=== PATIENT | female | born 1960 | race Caucasian/White ===

== ENCOUNTER → 2017-02-13 | Outpatient (CLI) | payer OTHER ==
[2017-02-13 12:44] LABS: Basophils # (A) 0.1 k/uL (0-0.2); Basophils % (A) 1 %; CH 28.8; CHCM 33.4; Eosinophils # (A) 0.2 k/uL (0-0.7); Eosinophils % (A) 2 %; HCT 44.8 % (34.0-46.0); HGB 15.1 gm/dL (11.4-16.0); Luc # (Auto) 0.21; Luc % (Auto) 3; Lymphocytes # (A) 1.8 k/uL (1.0-4.8); Lymphocytes % (A) 22 %; MCH 29.1 pg (25.0-35.0); MCHC 33.6 g/dL (31.0-37.0); MCV 86.5 fL (80.0-100.0); Mean Platelet Volume 7.1; Monocytes # (A) 0.5 k/uL (0-1.0); Monocytes % (A) 6 %; Neutrophils # (A) 5.2 k/uL (1.3-7.7); Neutrophils % (A) 66 %; RBC 5.18 m/uL (3.80-5.40); WBC 7.9 k/uL (3.8-10.6); WBC (Perox) 8.34
[2017-02-13 12:58] LABS: ALT 51 U/L (9-52); AST 30 U/L (14-36); Alkaline Phosphatase 81 U/L (38-126); Anion Gap 13 mmol/L; Blood Urea Nitrogen 20 mg/dL (7-17); Calcium 10.2 mg/dL (8.4-10.2); Carbon Dioxide 24 mmol/L (22-30); Chloride 104 mmol/L (98-107); Cholesterol 174 mg/dL (<200); Glucose 148 mg/dL (74-99); HDL Cholesterol 28 mg/dL (40-60); Non-African American GFR(MDRD) >60 (>60 ml/min/1.73 sqM); Potassium 4.5 mmol/L (3.5-5.1); Sodium 141 mmol/L (137-145); Total Bilirubin 0.6 mg/dL (0.2-1.3); Total Protein 7.2 g/dL (6.3-8.2); Triglycerides 383 mg/dL (<150)
[2017-02-13 14:35] LABS: Hemoglobin A1C 7.7 % (4.2-6.1)
[2017-02-13 19:23] LABS: Urine Creatinine 90.2 mg/dL
== END | disposition home or self-care (01) ==
LOC: LABWHC1 11:37
PROVIDERS: ATTEND Family Medicine
DX: E11.65 Type 2 diabetes mellitus with hyperglycemia (principal)
CPT/HCPCS: 36415; 80053; 80061; 82043; 82570; 83036; 84443; 85025

== ENCOUNTER → 2017-03-03 | Outpatient (CLI) | payer OTHER ==
--- NOTE | 2017-03-03 11:07 | MM ---
Reason for exam: additional evaluation requested from prior study. Last mammogram was performed 1 year ago. History: Patient is postmenopausal, has history of breast cancer at age 54, and has history of high-risk lesion on a previous biopsy at age 54. Family history of breast cancer in maternal aunt at age 50. Radiation therapy, September 2015. Malignant MG pre op needle loc LT of the left breast, June 30, 2015. High risk MG stereo VAD BX LT of the left breast, June 23, 2015. US discontinued breast bx LT of the left breast, June 23, 2015. Took hormonal contraceptives for 2 years beginning at age 18. Took antineoplastic beginning at age 54. Physical Findings: Nurse did not find any significant physical abnormalities on exam. MG 3D Diag Mammo W/Cad MAX Bilateral CC and MLO view(s) were taken. Prior study comparison: March 01, 2016, bilateral MG 3d diag mammo w/cad MAX. June 02, 2015, bilateral MG 3d diag mammo w/cad MAX. There are scattered fibroglandular densities. Finding #1: Architectural distortion in the left breast consistent with previous surgery. Finding #2: There are grouped/clustered calcifications in the right breast. New finding since March 01, 2016 and June 02, 2015. These results were verbally communicated with the patient and result sheet given to the patient on 03/03/17. ASSESSMENT: Suspicious, BI-RAD 4 RECOMMENDATION: Stereotactic core biopsy of the right breast. Called Dr. Russell with mammographic findings and has scheduled an appointment for the patient for 03/08/17 at 8:[address] Sidhu. PRELIMINARY REPORT CALLED AND FAXED TO DR. SIDHU ON 03/03/17 /TP.
== END | disposition home or self-care (01) ==
LOC: RADMAMWWP 08:48
PROVIDERS: ATTEND Radiology Diagnostic Radiology
DX: C50.912 Malignant neoplasm of unspecified site of left female breast (principal)
CPT/HCPCS: G0204; G0279

== ENCOUNTER → 2017-03-14 | Day surgery (SDC) | payer OTHER ==
[2017-03-14 07:47] VITALS: RESP 16; BMI 29.2
--- NOTE | 2017-03-14 09:06 | MM ---
EXAMINATION TYPE: MG stereo VAD BX RT DATE OF EXAM: 03/14/2017 COMPARISON: Prior mammogram March 03, 2017 and older studies. CLINICAL HISTORY: Abnormal mammogram TECHNIQUE: Stereotactic guided core biopsy of right breast with clip placement and follow-up two-view mammogram. FINDINGS: The procedure of stereotactic guided core biopsy was explained to the patient. Benefits, alternatives, and risks were discussed. An informed consent was then obtained. [facility] Shortness pathway was inferior approach. I performed the localization, then surgeon, Dr. Yip performed the remainder of the procedure. A vacuum assisted biopsy gun was used to obtain multiple core samples. The patient tolerated the procedure well without any immediate complication. The patient was kept in the radiology department for short stay after the procedure and then discharged home in stable condition. 2 small faint targeted calcifications are identified in specimen mammogram. Post biopsy mammogram shows the clip to appear in satisfactory position relative to the targeted area of concern on the preprocedure images. No residual calcifications are identified. IMPRESSION: SUCCESSFUL, UNCOMPLICATED STEREOTACTIC GUIDED CORE BIOPSY OF AREA OF CONCERN IN THE RIGHT BREAST, FULL PATHOLOGY RESULTS TO FOLLOW. Low index of suspicion noted at time of procedure. Pathology Results: Benign BREAST, RIGHT SITE A, CORE BIOPSY: BENIGN BREAST WITH FIBROCYSTIC CHANGES AND FOCAL FAT NECROSIS. SEE NOTE. Recommendation Return to screening mammogram in 1 year. Back on schedule. FAVIAN
[2017-03-14 09:08] VITALS: BP 102/68; PULSE 70; TEMP 98.5
--- NOTE | 2017-03-14 11:30 | PCN ---
PREPROCEDURE DIAGNOSIS: Mammographic abnormality right breast, status post left breast lumpectomy for carcinoma. POSTPROCEDURE DIAGNOSIS: Mammographic abnormality right breast, status post left breast lumpectomy for carcinoma. PROCEDURE: Right breast stereotactic core biopsy. The patient is a 56-year-old white female who was seen with a mammographic abnormality in the right breast and recommended by Radiology to undergo a right breast stereotactic core biopsy. The patient had previously undergone a left breast lumpectomy for a breast cancer. Physical examination of the breast had revealed postlumpectomy changes in the left breast and in the right breast no dominant masses or nodules of concern and no axillary adenopathy of concern in either breast. The patient was taken to the stereotactic procedure room and the stereotactic right breast biopsy was performed. The location of the lesion was in the inferior aspect of the right breast. The approach used to target the lesion was an inferior approach and the CC view. The lesion was targeted and the skin was then prepped using a Betadine solution. 1% Lidocaine was used to anesthetize area. A suction vacuum biopsy needle on a low rad table was utilized. An 8-gauge needle was utilized. The multiple core biopsies were obtained. Radiograph of the specimen revealed several calcifications which was believed to be patient account representative in adequate sampling of the lesion. A MammoMARK 8 [id number] was placed. Radiographs of the breast revealed that the marker was in the correct location. The patient tolerated the procedure in stable condition. This specimen was sent for pathology and the patient will follow with Dr. Claros. FAVIAN
== END ==
LOC: RADMAMWWP 07:23
PROVIDERS: ATTEND Surgery
DX: N64.1 Fat necrosis of breast (principal); R92.8 Other abnormal and inconclusive findings on diagnostic imaging of breast; Z88.8 Allergy status to other drugs, medicaments and biological substances
CPT/HCPCS: 88305; 19081; A4648; J2001

== ENCOUNTER → 2017-10-09 | Outpatient (CLI) | payer OTHER ==
--- NOTE | 2017-10-09 14:56 | BD ---
EXAMINATION TYPE: MG DEXA axial skeleton. DATE OF EXAM: 10/09/2017 Comparison: Prior DEXA bone scan August 10, 2015 CLINICAL HISTORY: Height: 63.75 Weight: 173 FRAX RISK QUESTIONS: Alcohol (3 or more units per day): no Family History (Parent hip fracture): no Glucocorticoids (More than 3mos): no (Ex: prednisone, prednisolone, methylprednisolone, dexamethasone, and hydrocortisone). History of Fracture in Adulthood: no Secondary Osteoporosis: 1. Type 1 Diabetes: no 2. Hyperthyroidism: no 3. Menopause before 45: hysterectomy age 45 4. Malnutrition: no 5. Chronic liver disease: no Rheumatoid Arthritis: no Current Tobacco Use: yes RISK FACTORS HISTORY OF: Family History of Osteoporosis: no Active: yes Diet low in dairy products/other sources of calcium: no Postmenopausal woman: yes Take estrogen and/or progesterone medications: not now How long: antineoplastic for a couple years Lost more than 2 inches in height since high school: no Frequent falls: no Poor Health: unsure Hyperparathyroidism: no Adrenal Insufficiency: no MEDICATIONS: Prednisone or other steroids: no Thyroid Medications: no Osteoporosis Medications: no Additional Medications: metformin, blood pressure meds, cholesterol Additional History: Breast CA age 54/radiation 2016... Type II diabetic....feeling tired EXAM MEASUREMENTS: Bone mineral densitometry was performed using the [employer] System. Bone mineral density as measured about the Lumbar spine is: ----- L1-L4(G/cm2): 1.100 T Score Values are as follows: ----- L2: -0.6 ----- L3: -0.7 ----- L4: -1.2 ----- L1-L4: -0.7 Bone mineral density has: Decreased -4.9% since study of: 08/10/2015 Bone mineral density about the R hip (g/cm2): 1.057 Bone mineral density about the L hip (g/cm2): 1.038 T Score values are as follows: -----R Neck: 0.1 -----L Neck: 0.0 -----R Total: 0.5 -----L Total: 0.4 Bone mineral density has: Decreased -4.0% since study of: 08/10/2015 IMPRESSION: Normal (Values between +1 and -1 indicate normal bone mass). Consider repeating this study in 5 year s or sooner if there is some new clinical indication. NOTE: T-SCORE=SD OF THE YOUNG ADULT MEAN.
== END | disposition home or self-care (01) ==
LOC: RADBDWWP 13:13
PROVIDERS: ATTEND Internal Medicine Hematology & Oncology
DX: D05.12 Intraductal carcinoma in situ of left breast (principal); N95.1 Menopausal and female climacteric states; Z79.890 Hormone replacement therapy
CPT/HCPCS: 77080

== ENCOUNTER → 2018-01-12 | Outpatient (CLI) | payer OTHER ==
--- NOTE | 2018-01-12 15:30 | US ---
EXAMINATION TYPE: US thyroid st tissue head/neck DATE OF EXAM: 01/12/2018 COMPARISON: NONE CLINICAL HISTORY: F45.8 Other somatoform disorders. Patient states that when she bends over, she feel s a pressure sensation in her left neck. Within the left neck, there are two probable lymph nodes visualized, largest measuring 1.1 x 0.5 x 0. 5 cm. No other abnormality visualized within the left neck. IMPRESSION: In the region of the palpable abnormality there are multiple nonenlarged, morphologicall y normal-appearing lymph nodes.
== END | disposition home or self-care (01) ==
LOC: RADUSWWP 14:51
PROVIDERS: ATTEND Family Medicine
DX: R93.8 Abnormal findings on diagnostic imaging of other specified body structures (principal); F45.8 Other somatoform disorders
CPT/HCPCS: 76536

== ENCOUNTER → 2018-03-15 | Outpatient (CLI) | payer OTHER ==
--- NOTE | 2018-03-15 15:52 | MM ---
Reason for exam: additional evaluation requested from prior study. Last mammogram was performed 1 year ago. History: Patient is postmenopausal, has history of breast cancer at age 54, and has history of high-risk lesion on a previous biopsy at age 54. Family history of breast cancer in paternal cousin at age 40 and breast cancer in maternal aunt at age 50. Benign MG stereo VAD BX RT of the right breast, March 14, 2017. Radiation therapy, September 2015. Malignant MG pre op needle loc LT of the left breast, June 30, 2015. High risk MG stereo VAD BX LT of the left breast, June 23, 2015. US discontinued breast bx LT of the left breast, June 23, 2015. Took hormonal contraceptives for 2 years beginning at age 18. Took antineoplastic beginning at age 54. Physical Findings: Nurse did not find any significant physical abnormalities on exam. MG 3D Diag Mammo W/Cad MAX Bilateral CC and MLO view(s) were taken. Prior study comparison: March 03, 2017, bilateral MG 3d diag mammo w/cad MAX. March 01, 2016, bilateral MG 3d diag mammo w/cad MAX. The breast tissue is heterogeneously dense. This may lower the sensitivity of mammography. There is a distortion in the upper outer left breast consistent with previous lumpectomy changes. There are benign appearing round calcifications bilaterally. No discrete abnormality. These results were verbally communicated with the patient and result sheet given to the patient on 03/15/18. ASSESSMENT: Benign, BI-RAD 2 RECOMMENDATION: Follow-up diagnostic mammogram of both breasts in 1 year.
== END | disposition home or self-care (01) ==
LOC: RADMAMWWP 09:37
PROVIDERS: ATTEND Radiology Diagnostic Radiology
DX: C50.912 Malignant neoplasm of unspecified site of left female breast (principal)
CPT/HCPCS: 77066; G0279; 77062

== ENCOUNTER → 2018-10-16 | Outpatient (CLI) | payer OTHER ==
--- NOTE | 2018-10-16 11:02 | CT ---
EXAMINATION TYPE: CT soft tissue neck w con DATE OF EXAM: 10/16/2018 COMPARISON: None HISTORY: Mass and lump CT DLP: 364.70 mGycm CONTRAST: CT scan of the neck is performed with IV Contrast, patient injected with 100 ml mL of Isovue 300. Mar ker is placed at the site of clinical concern left neck. Contrast enhanced CT of the neck was performed from the skull base through the lung apices. At the site of clinical concern left neck there is prominent fat that which may reflect a lipoma. No solid masses are detected. AIRWAY: The supraglottic, glottic, and subglottic portions of the airway appear patent and free of mass. SALIVARY GLANDS: The submandibular and parotid glands are free of mass or inflammatory process. THYROID GLAND: No nodules or masses seen. LYMPH NODES: No adenopathy seen greater than 1cm. LUNG APICES: No nodule or mass is seen. OTHER: Vascular structures are patent. No significant degenerative change of the cervical spine. N o abscess seen. IMPRESSION: Exuberant fat or lipoma at the site of clinical concern left neck.
== END | disposition home or self-care (01) ==
LOC: RADCTMAIN 09:28
PROVIDERS: ATTEND Family Medicine
DX: C50.912 Malignant neoplasm of unspecified site of left female breast (principal); R22.1 Localized swelling, mass and lump, neck
CPT/HCPCS: 82565; 84520; 70491; 36415; Q9967

== ENCOUNTER → 2019-03-18 | Outpatient (CLI) | payer OTHER ==
--- NOTE | 2019-03-18 10:30 | MM ---
Reason for exam: additional evaluation requested from prior study. Last mammogram was performed 1 year ago. History: Patient is postmenopausal, has history of breast cancer at age 54, and has history of high-risk lesion on a previous biopsy at age 54. Family history of breast cancer in paternal cousin at age 40 and breast cancer in maternal aunt at age 50. Benign MG stereo VAD BX RT of the right breast, March 14, 2017. Radiation therapy, September 2015. Malignant MG pre op needle loc LT of the left breast, June 30, 2015. High risk MG stereo VAD BX LT of the left breast, June 23, 2015. US discontinued breast bx LT of the left breast, June 23, 2015. Took hormonal contraceptives for 2 years beginning at age 18. Took antineoplastic beginning at age 54. Physical Findings: Nurse did not find any significant physical abnormalities on exam. MG 3D Diag Mammo W/Cad MAX Bilateral CC and MLO view(s) were taken. Prior study comparison: March 15, 2018, bilateral MG 3d diag mammo w/cad MAX. March 03, 2017, bilateral MG 3d diag mammo w/cad MAX. The breast tissue is heterogeneously dense. This may lower the sensitivity of mammography. Stable benign calcifications. Stable post operative distortion left breast. No significant new findings when compared with previous films. These results were verbally communicated with the patient and result sheet given to the patient on 03/18/19. ASSESSMENT: Benign, BI-RAD 2 RECOMMENDATION: Follow-up diagnostic mammogram of both breasts in 1 year.
== END | disposition home or self-care (01) ==
LOC: RADMAMWWP 09:32
PROVIDERS: ATTEND Radiology Diagnostic Radiology
DX: Z08 Encounter for follow-up examination after completed treatment for malignant neoplasm (principal); Z85.3 Personal history of malignant neoplasm of breast
CPT/HCPCS: 77062; 77066

== ENCOUNTER 2020-03-27 06:36 | Day surgery (SDC) | payer OTHER ==
[2020-03-25 16:57] VITALS: BMI 31.8
[~2020-03-27 06:36] MED LIST: LACTATED RINGERS 1,000 ML IV SCH
[2020-03-27 06:58] VITALS: TEMP 97.8
[2020-03-27] MEDS ORDERED: LIDOCAINE 1% (10MG/ML) FOR IV START INTRADERMA ONE (07:00)
[2020-03-27] MEDS ORDERED: LACTATED RINGERS 1,000 ML IV ONE ×2 (07:00)
[2020-03-27 07:08] LABS: Glucose,Whole Blood 147 mg/dL (75-99)
[2020-03-27] MEDS ORDERED: PROPOFOL 10 MG/ML 20 ML VIAL IV ONE (07:53)
--- NOTE | 2020-03-27 08:21 | P.PCN ---
Date of Procedure: 03/27/20 Procedure(s) Performed: BRIEF HISTORY: Patient is a 59-year-old pleasant white female scheduled for an elective colonoscopy as a part of value should prior history of colon polyps. Last colonoscopy was 5 years ago. PROCEDURE PERFORMED: Colonoscopy with snare polypectomy. PREOPERATIVE DIAGNOSIS: History Of colon polyps. IV sedation per Anesthesia. PROCEDURE: After informed consent was obtained, the patient, was brought into the endoscopy unit. IV sedation was administered by Anesthesia under continuous monitoring. Digital rectal examination was normal. Initially the Olympus CF-160 flexible video colonoscope was then inserted in the rectum, gradually advanced into the cecum without any difficulty. Careful examination was performed as the scope was gradually being withdrawn. Ileocecal valve and the appendiceal orifice were visualized and appeared normal. Prep was excellent. Mucosa of the cecum appeared normal. In the ascending colon there was a 5 mm polyp that was removed by snare polypectomy. Rest of the, ascending colon, transverse colon, descending colon, sigmoid colon, and rectum appeared normal. Retroflexion was performed in the rectum and no lesions were seen. The patient tolerated the procedure well. IMPRESSION: 5 mm ascending colon polyp serous was snare polypectomy Rest of the colon appeared normal RECOMMENDATIONS: Findings of this examination were discussed with the patient as well as a family.. She was advised to follow with the biopsy results. If the biopsy shows an adenoma she can have a repeat colonoscopy in 5 years.
[2020-03-27 08:38] VITALS: BP 110/58; PULSE 67; RESP 18
== END 2020-03-27 08:59 | disposition home or self-care (01) ==
LOC: ORWHC2ENDO 06:36
PROVIDERS: ATTEND Internal Medicine Gastroenterology
DX: Z12.11 Encounter for screening for malignant neoplasm of colon (principal); K63.5 Polyp of colon; Z86.010 Personal history of colon polyps; E11.9 Type 2 diabetes mellitus without complications; K08.109 Complete loss of teeth, unspecified cause, unspecified class; I10 Essential (primary) hypertension; E78.5 Hyperlipidemia, unspecified; F17.210 Nicotine dependence, cigarettes, uncomplicated; K21.9 Gastro-esophageal reflux disease without esophagitis; Z88.1 Allergy status to other antibiotic agents; Z88.8 Allergy status to other drugs, medicaments and biological substances; Z88.6 Allergy status to analgesic agent; Z79.899 Other long term (current) drug therapy; Z79.84 Long term (current) use of oral hypoglycemic drugs; Z85.3 Personal history of malignant neoplasm of breast
CPT/HCPCS: 88305; 45385; J2704

== ENCOUNTER → 2021-03-26 | Outpatient (CLI) | payer OTHER ==
--- NOTE | 2021-03-26 11:54 | MM ---
Reason for exam: additional evaluation requested from prior study. Last mammogram was performed 2 years ago. History: Patient is postmenopausal, has history of breast cancer at age 54, and has history of high-risk lesion on a previous biopsy at age 54. Family history of breast cancer in paternal cousin at age 40 and breast cancer in maternal aunt at age 50. Benign MG stereo VAD BX RT of the right breast, March 14, 2017. Radiation therapy, September 2015. Malignant MG pre op needle loc LT of the left breast, June 30, 2015. High risk MG stereo VAD BX LT of the left breast, June 23, 2015. US discontinued breast bx LT of the left breast, June 23, 2015. Took hormonal contraceptives for 2 years beginning at age 18. Took antineoplastic beginning at age 54. Physical Findings: Nurse did not find any significant physical abnormalities on exam. MG 3D Diag Mammo W/Cad MAX Bilateral CC and MLO view(s) were taken. Prior study comparison: March 18, 2019, bilateral MG 3d diag mammo w/cad MAX. March 15, 2018, bilateral MG 3d diag mammo w/cad MAX. March 03, 2017, bilateral MG 3d diag mammo w/cad MAX. The breast tissue is heterogeneously dense. This may lower the sensitivity of mammography. Finding #1: There is stable architectural distortion in the left breast consistent with known post treatment changes. Finding #2: There are typically benign round calcifications in both breasts. There is a chronic nodularity in the left lateral breast unchanged from 2018. There is no new dominant lesion. These results were verbally communicated with the patient and result sheet given to the patient on 03/26/21. ASSESSMENT: Benign, BI-RAD 2 RECOMMENDATION: Follow-up diagnostic mammogram of both breasts in 1 year.
== END | disposition home or self-care (01) ==
LOC: RADMAMWWP 10:52
PROVIDERS: ATTEND Radiology Diagnostic Radiology
DX: R92.1 Mammographic calcification found on diagnostic imaging of breast (principal); Z78.0 Asymptomatic menopausal state; Z85.3 Personal history of malignant neoplasm of breast; Z80.3 Family history of malignant neoplasm of breast; Z79.3 Long term (current) use of hormonal contraceptives
CPT/HCPCS: 77066; G0279; 77062

== ENCOUNTER → 2024-02-16 | Outpatient (CLI) | payer BC ==
--- NOTE | 2024-02-23 13:15 | MM ---
Reason for Exam: Screening (asymptomatic). Last mammogram was performed 1 year(s) and 11 month(s) ago. Patient History: Menarche at age 14. First Full-Term at age 18. Left ovary removed at age 45. Right ovary removed at age 45. Hysterectomy at age 45. Postmenopausal. Breast cancer, age 54. Hormonal Contraceptives for 2 years from age 18 until age 20. 03/14/2017, Benign Core Biopsy on the right side. 06/30/2015, Malignant Core Biopsy on the left side. 06/23/2015, High risk Core Biopsy on the left side. 09/2015, Radiation Therapy. 06/23/2015, US discontinued breast bx LT on the left side. Paternal cousin had breast cancer, age 40. Maternal aunt had breast cancer, age 50. Prior Study Comparison: 03/18/2019 Bilateral Diagnostic Mammogram, [facility]. 03/26/2021 Bilateral Diagnostic Mammogram, [facility]. 03/28/2022 Bilateral MG 3D diag mammo w/cad MAX, [facility]. Tissue Density: The breasts are heterogeneously dense, which may obscure small masses. Findings: Analyzed By CAD. Left breast surgical clips. Right breast: There is no suspicious group of microcalcifications or new suspicious mass. Benign-appearing calcifications right breast. Left breast: There is no suspicious group of microcalcifications or new suspicious mass. Benign-appearing calcifications left breast. Overall Assessment: Benign, BI-RAD 2 Management: Screening Mammogram of both breasts in [address] [facility] will attempt to contact patient to return for supplemental views and ultrasound if indicated. Patient should continue monthly self-breast exams. A clinical breast exam by your physician is recommended on an annual basis. This exam should not preclude additional follow-up of suspicious palpable abnormalities. Note on Jaida scores and lifetime risk: 1. A Jaida score greater than 3% is considered moderate risk. If this is the case, consider specialist referral to assess eligibility for a risk reducing agent. 2. If overall lifetime risk for the development of breast cancer is 20% or higher, the patient may qualify for future screening with alternating mammogram and breast MRI. Electronically signed and approved by: Noble Valle DO
== END | disposition home or self-care (01) ==
LOC: RADMAMWWP 16:00
PROVIDERS: ATTEND Family Medicine
DX: Z12.31 Encounter for screening mammogram for malignant neoplasm of breast (principal); Z78.0 Asymptomatic menopausal state; Z80.3 Family history of malignant neoplasm of breast; Z90.721 Acquired absence of ovaries, unilateral
CPT/HCPCS: 77063; 77067

== ENCOUNTER → 2024-02-16 | Outpatient (CLI) | payer BC ==
--- NOTE | 2024-02-18 10:02 | US ---
LOWER EXTREMITY VENOUS INSUFFICIENCY CLINICAL INDICATION: Female, 63 years old with history of I87.2 VENOUS INSUFFICIENCY; Right leg swell ing. No injury. No redness. SIDE PERFORMED: Bilateral 1) Color flow is present and patency is documented in the following vessels. No DVT or SVT is noted . Common Femoral Vein Deep Femoral Vein Femoral Vein Popliteal Vein Proximal Calf Veins Greater Saph Vein Upper Small Saph Vein 2) There is venous reflux noted at the following venous levels: Right- EIV, CFV, Deep FV, prox FV Left- EIV 3) Incompetent perforators are noted at these levels: none IMPRESSION: Venous reflux as noted.
== END | disposition home or self-care (01) ==
LOC: RADUSWWP 15:56
PROVIDERS: ATTEND Family Medicine
DX: I87.2 Venous insufficiency (chronic) (peripheral) (principal); M79.89 Other specified soft tissue disorders
CPT/HCPCS: 93970

== ENCOUNTER → 2024-08-06 | Outpatient (CLI) | payer BC ==
--- NOTE | 2024-08-06 13:08 | XR ---
EXAMINATION TYPE: XR cervical spine 3 views DATE OF EXAM: 08/06/2024 12:54 PM COMPARISON: None CLINICAL INDICATION: Female, 63 years old with history of M54.12 RADICULOPATHY, CERVICAL REGION, , FINDINGS: No predental space widening or prevertebral soft tissue swelling. Incidentally, the patient is edentu lous. There is mild to moderate disc/endplate degenerative change particularly at C5-C6 and C6-C7. Th e patient's shoulders obscures the cervicothoracic junction. Otherwise, there is a trace grade 1 ante rolisthesis C3-C4. Remaining alignment is maintained. Multilevel moderate to advanced facet and uncov ertebral joint arthropathy is present. Normal odontoid view. IMPRESSION: Moderate multilevel spondylotic change. Degenerative trace grade 1 anterolisthesis C3-C4. The cervico thoracic junction is obscured by the patient's shoulders and not assessed. [facility], , 08/06/2024 1:06 PM
== END | disposition home or self-care (01) ==
LOC: RADXRMAIN 12:39
PROVIDERS: ATTEND Family Medicine
DX: M47.22 Other spondylosis with radiculopathy, cervical region (principal); M43.12 Spondylolisthesis, cervical region
CPT/HCPCS: 72040